=== PATIENT | male | born 1945 ===

== ENCOUNTER 2022-12-16 05:50 | Day surgery (SDC) | payer OTHER ==
[~2022-12-16] VITALS: Ht 166.4 cm; Wt 68.0 kg
[~2022-12-16 05:50] MED LIST: ADULT ASPIRIN R81 MG PO; AMLODIP PO; ATORVASTATIN CA40 MG PO; BREO ELLIPTA 21 EACH IH; CARV PO; FAMOT PO; SINGULAIR10 MG PO; SPIRONOLACTONE25 MG PO; VALSARTAN-HCTZ1 EAC3 PO
== END 2022-12-17 18:00 | disposition home or self-care (01) ==
LOC: CIR.AMB 05:50
PROVIDERS: ATTEND Surgery
DX: K40.20 Bilateral inguinal hernia, without obstruction or gangrene, not specified as recurrent (principal); K42.9 Umbilical hernia without obstruction or gangrene; N43.3 Hydrocele, unspecified; Z20.822 Contact with and (suspected) exposure to COVID-19; I10 Essential (primary) hypertension; E78.5 Hyperlipidemia, unspecified
CPT/HCPCS: 49650; 49593; 55040; C1781